=== PATIENT | male | born 1945 ===

== ENCOUNTER 2022-07-22 22:48 | Emergency (ER) | payer MEDICARE, OTHER ==
[~2022-07-22] VITALS: Ht 173 cm; Wt 64.0 kg
[2022-07-22] MEDS ORDERED: ATOR10TA66 PO (22:54)
[2022-07-22] MEDS ORDERED: LEVO25TA2 PO (22:54)
[2022-07-22] MEDS ORDERED: LISI2.5T13 PO (22:54)
[2022-07-22] MEDS ORDERED: LACTATED RINGERS 1,000 ML IV ONE (23:00)
[2022-07-22] MEDS ORDERED: morphine INJ 10 MG/ML 1ML (SYR OR VIAL) IVP STA (23:26)
--- NOTE | 2022-07-22 23:49 | ED Back Pain ---
General Chief Complaint: Back Problems Stated Complaint: LT SIDE BACK PAIN Nursing Triage Note: left flank pain Source of Information: Patient Exam Limitations: No Limitations History of Present Illness Date Seen by Provider: Jul 22, 2022 Time Seen by Provider: 23:46 Initial Comments This is 77-year-old gentleman presents to the emergency room with complaints of left flank pain and a little bit of abdominal pain since early today. He has had 2 waves of pain that was more stabbing in nature. He then had a syncopal episode and woke up under the sink in his hotel room. He denies any injury or trauma from that syncopal episode. He is hypotensive on arrival. He describes a AAA presently under surveillance. He is here visiting from [place] and is hunting. He takes daily aspirin but no anticoagulants are noted in the medication he brings with him or his medication filling record. Allergies and Home Medications Allergies Coded Allergies: No Known Drug Allergies (Unverified , 07/22/22) Patient Home Medication List Home Medication List Reviewed: Yes Atorvastatin Calcium (Atorvastatin Calcium) 10 Mg Tablet, Unknown Dose PO HS, (Reported) Entered as Reported by: JOE LANDA on 07/22/222253 Last Action: New Order Levothyroxine Sodium (Synthroid) 25 Mcg Tablet, Unknown Dose PO, (Reported) Entered as Reported by: JOE LANDA on 07/22/222253 Last Action: New Order Lisinopril (Lisinopril) 2.5 Mg Tablet, Unknown Dose PO DAILY, (Reported) Entered as Reported by: JOE LANDA on 07/22/222253 Last Action: New Order Review of Systems Constitutional: no symptoms reported EENTM: no symptoms reported Respiratory: no symptoms reported Cardiovascular: see HPI Gastrointestinal: see HPI Genitourinary: no symptoms reported Musculoskeletal: no symptoms reported Skin: no symptoms reported Psychiatric/Neurological: See HPI Past Usfjwnq-Tzniya-Slzolv Hx Patient Social History Tobacco Use?: Yes Substance use?: No Alcohol Use?: Yes Pt feels they are or have been: No Immunizations Up To Date First/Initial COVID19 Vaccinat: x2 Past Medical History Surgery/Hospitalization HX: abdoinal aneurysm, htn, hypothryoidism, high cholesterol, colon resection. Surgeries: Yes Abdominal (Colon resection for bowel obstruction) Respiratory: Yes COPD Cardiac: Yes Aneurysm (AAA), Hypertension Physical Exam Vital Signs Vital Signs - First Documented 07/22/22 22:50 Temp 35.2 Pulse 64 Resp 14 B/P (MAP) 83/47 (59) Pulse Ox 95 O2 Delivery Room Air Capillary Refill : Less Than 3 Seconds Height, Weight, BMI Height: '" Weight: lbs. oz. kg; 21.00 BMI Method: General Appearance: No Apparent Distress, WD/WN HEENT: PERRL/EOMI, Normal ENT Inspection Neck: Normal Inspection Cardiovascular: Regular Rate, Rhythm, No Edema, No Murmur Respiratory: Lungs Clear, Normal Breath Sounds, No Accessory Muscle Use Gastrointestinal: Soft; No Distended, No Mass; Tenderness (Minimal) Extremity: Normal Inspection, No Pedal Edema Neurologic/Psychiatric: Alert, Oriented x3, No Motor/Sensory Deficits, Normal Mood/Affect Skin: Normal Color, Warm/Dry Progress/Results/Core Measures Results/Orders Lab Results Laboratory Tests Test 07/22/22 23:16 Range/Units White Blood Count 12.4 H 4.3-11.0 10^3/uL Red Blood Count 2.44 L 4.30-5.52 10^6/uL Hemoglobin 8.2 L 13.3-17.7 g/dL Hematocrit 25 L 40-54 % Mean Corpuscular Volume 100 H 80-99 fL Mean Corpuscular Hemoglobin 34 25-34 pg Mean Corpuscular Hemoglobin Concent 34 32-36 g/dL Red Cell Distribution Width 14.4 10.0-14.5 % Platelet Count 156 130-400 10^3/uL Mean Platelet Volume 9.8 9.0-12.2 fL Immature Granulocyte % (Auto) 1 % Neutrophils (%) (Auto) 86 H 42-75 % Lymphocytes (%) (Auto) 7 L 12-44 % Monocytes (%) (Auto) 6 0-12 % Eosinophils (%) (Auto) 0 0-10 % Basophils (%) (Auto) 0 0-10 % Neutrophils # (Auto) 10.6 H 1.8-7.8 10^3/uL Lymphocytes # (Auto) 0.9 L 1.0-4.0 10^3/uL Monocytes # (Auto) 0.8 0.0-1.0 10^3/uL Eosinophils # (Auto) 0.0 0.0-0.3 10^3/uL Basophils # (Auto) 0.0 0.0-0.1 10^3/uL Immature Granulocyte # (Auto) 0.1 0.0-0.1 10^3/uL My Orders Orders - SUJIT JULES MD Ct Chest/Abdomen/Pelvis Wo (07/22/22 22:58) Ed Iv/Invasive Line Start (07/22/22 23:00) Lactated Ringers (Lr 1000 Ml Iv Solution (07/22/22 23:00) Ekg Tracing (07/22/22 23:00) Monitor-Rhythm Ecg Trace Only (07/22/22 23:00) Type And Screen (07/22/22 23:01) Red Cells Leukocytes Reduced (07/22/22 23:21) Morphine Injection (Morphine Injection (07/22/22 23:26) Cbc With Automated Diff (07/22/22 23:32) Comprehensive Metabolic Panel (07/22/22 23:32) Protime With Inr (07/22/22 23:32) Partial Thromboplastin Time (07/22/22 23:32) Manual Differential (07/22/22 23:16) Tranexamic Acid Injection (Cyklokapron I (07/23/22 00:30) Medications Given in ED Current Medications Medications Dose Ordered Sig/Deepa Route Start Time Stop Time Status Last Admin Dose Admin Lactated Ringer's 1,000 ml @ 0 mls/hr Q0M ONCE IV 07/22/22 23:00 12 23:01 DC 07/22/22 23:11 0 MLS/HR Tranexamic Acid 10 MG/KG ONCE ONCE IV 07/23/22 00:30 07/23/22 00:31 DC 07/23/22 00:24 640 MG Vital Signs/I&O 07/22/22 22:50 Temp 35.2 Pulse 64 Resp 14 B/P (MAP) 83/47 (59) Pulse Ox 95 O2 Delivery Room Air Blood Pressure Mean: 59 Progress Progress Note #1: Time: 23:53 Progress Note Patient was initially treated with IV fluids while blood products were being o btained. IV fluids resuscitated his blood pressure to 97 systolic. However, he began to drop again. Blood products were then initiated starting with the emergent O positive blood. A crossmatch is being provided further. The [facility] were closed to critical care transfers as was [facility]. The [facility] facilities have transfer capacity for vascular. Patient was tentatively accepted for [facility] but the vascular surgeon there stated the patient would need a different facility, either [facility] or [facility]. Progress Note #2: Time: 00:35 Progress Note I discussed the case with Dr. Rodarte, vascular surgeon at [facility]. He was under the impression the patient would most certainly in route if transport was requiring 2+ hours. No other options were available at that time, and he therefore accepted the transfer. [facility] in [place] was on critical care diversion. [facility] in [facility] was also on critical care diversion and did not happen for any vascular surgery coverage this weekend. Given the dire nature of the situation as both the radiologist and Dr. Rodarte felt this patient would in route if he required a 2-hour transfer, a plea to [facility] for an administrative override was made. Patient was ultimately accepted by Dr. Ghotra at [facility]. Transfer arrangements were made and [facility] was updated. Patient rebounded his systolic blood pressure to 115 even before blood products were transfused. He had received about 600 mL of LR. A unit of O+ and 1 crossmatched unit were sent with EMS. They were given specific instructions to transfuse if he develops symptomatic hypotension or systolic blood pressure between in the 85-90 range. Based on my conversation with Dr. Rodarte he also received a gram of tranexamic acid as a bolus. EMS was instructed to give no LR or saline. A newton discussion occurred with the patient and he was informed that prognosis was poor. I was newton that he has a high probability of dying tonight. We discussed CODE STATUS and he requested full code. Initial ECG Impression Date: Jul 22, 2022 Initial ECG Impression Time: 23:15 Initial ECG Rate: 57 Initial ECG Rhythm: Normal Sinus Comment Sinus rhythm with no ST elevation or depression. No abnormal intervals or axis deviation. Diagnostic Imaging Diagonstic Imaging: CT Plain Films/CT/US/NM/MRI: abdomen, pelvis Comments CT scan was viewed by me and [facility] report reviewed. Discussed with the radiologist. There is a ruptured aortic aneurysm measuring 9 cm with significant amount of acute retroperitoneal bleed. Emergent vascular consultation was recommended. Departure Impression Primary Impression: Leaking abdominal aortic aneurysm Additional Impressions: Hypotension Qualified Codes: I95.89 - Other hypotension; E86.1 - Hypovolemia Acute kidney injury Disposition: 02 XFER SHT-TRM HOSP Condition: Critical Transfer Transfer Reason: Exceeds level of care Time Spoke to Accepting Phy: 00:25 Transfer Progress Notes Transfer ultimately excepted by Dr. Ghotra at [facility] Transfer Time: 00:35 Transfer Facility: [facility] [place] Method of Transfer: EMS Departure-Patient Inst. Referrals: NO,LOCAL PHYSICIAN (PCP/Family) Primary Care Physician SUJIT JULES MD Jul 22, 2022 23:49
[2022-07-22 23:59] LABS: BASOPHILS % (AUTO) 0 % (0-10); EOSINOPHILS % (AUTO) 0 % (0-10); HEMATOCRIT 25 % (40-54); HEMOGLOBIN 8.2 g/dL (13.3-17.7); LYMPHOCYTES # (AUTO) 0.9 10^3/uL (1.0-4.0); LYMPHOCYTES % (AUTO) 7 % (12-44); MEAN CORPUSCULAR HEMOGLOBIN 34 pg (25-34); MEAN CORPUSCULAR HGB CONC 34 g/dL (32-36); MEAN CORPUSCULAR VOLUME 100 fL (80-99); MEAN PLATELET VOLUME 9.8 fL (9.0-12.2); MONOCYTES # (AUTO) 0.8 10^3/uL (0.0-1.0); MONOCYTES % (AUTO) 6 % (0-12); NEUTROPHILS # (AUTO) 10.6 10^3/uL (1.8-7.8); NEUTROPHILS % (AUTO) 86 % (42-75); PLATELET COUNT 156 10^3/uL (130-400); WHITE BLOOD COUNT 12.4 10^3/uL (4.3-11.0)
[2022-07-23 00:12] LABS: ALBUMIN 3.5 GM/DL (3.2-4.5); BILIRUBIN,TOTAL 0.5 MG/DL (0.1-1.0); CREATININE SERUM 2.2 MG/DL (0.60-1.30); POTASSIUM 4.4 MMOL/L (3.6-5.0); TOTAL PROTEIN 5.8 GM/DL (6.4-8.2)
[2022-07-23 00:30] LABS: PROTHROMBIN TIME PATIENT 13.6 SEC (12.2-14.7)
[2022-07-23] MEDS ORDERED: TRANEXAMIC ACID 100 MG/ML 10 ML INJECTION IV ONE (00:30)
[2022-07-23 00:38] VITALS: BP 102/68
[2022-07-23 01:52] LABS: HYPOCHROMASIA SLIGHT; LYMPHOCYTES % (MANUAL) 7 %; MONOCYTES % (MANUAL) 6 %; NEUTROPHILS % (MANUAL) 87 %
--- NOTE | 2022-07-23 07:05 | Diagnostic Imaging Report ---
PROCEDURE: CT chest, abdomen, and pelvis without contrast. TECHNIQUE: Multiple contiguous axial images were obtained through the chest, abdomen, and pelvis without the use of intravenous contrast. Auto Exposure Controls were utilized during the CT exam to meet ALARA standards for radiation dose reduction. INDICATION: Abdominal pain. Back pain. History of abdominal aortic aneurysm. Fall. COMPARISON: None. CT chest: The heart size is within normal limits. No pericardial effusion is present. There is calcified aortic and coronary atherosclerotic plaque. There is no mediastinal, hilar, or axillary lymphadenopathy. Solid nodule is seen in the superior aspect of the right lower lobe measuring 1.4 cm. There are no focal areas of consolidation. No pneumothoraces are present. No central endobronchial obstructing lesions are identified. There are no pleural effusions. No acute osseous abnormalities. CT abdomen and pelvis: Large abdominal aneurysm is seen measuring 9.3 x 8.3 cm in max diameter. There is a large amount of periaortic inflammation and dense fluid consistent with acute rupture. Cholelithiasis is noted. No CT evidence of acute cholecystitis. Bilateral cortical cysts are seen in the kidneys. No hydronephrosis. The urinary bladder is nondistended. The liver, spleen, pancreas, and adrenal gland have a normal appearance. There is no pathologically enlarged mesenteric or retroperitoneal adenopathy. No evidence of bowel obstruction. No free air. No acute osseous abnormalities. There is no free air, loculated collection, or adenopathy in the pelvis. IMPRESSION: 1. Findings consistent with acute ruptured abdominal aneurysm. The aneurysm measures 9.3 cm in max diameter. Recommend urgent vascular surgery consultation. 2. Cholelithiasis. No CT evidence of acute cholecystitis. 3. Nodule in the right lower lobe measuring 1.4 cm. Followup should be performed in [address] Agree with overnight report. Dictated by: Dictated on workstation # [id number]
== END 2022-07-23 00:40 | disposition short-term general hospital (02) ==
LOC: ER 22:53
DX: I71.30 Abdominal aortic aneurysm, ruptured, unspecified (principal); I95.9 Hypotension, unspecified; N17.9 Acute kidney failure, unspecified
CPT/HCPCS: 36415; 71250; 74176; 80053; 85007; 85027; 85610; 85730; 86850; 86900; 86901; 86920; 93005